=== PATIENT | male | born 1955 | race Caucasian/White ===

== ENCOUNTER 2021-02-26 12:34 | Emergency (ER) | payer MEDICARE, OTHER, SELFPAY ==
[2021-02-26 12:36] VITALS: BP 160/96; PULSE 81; RESP 20; TEMP 35.9; O2SAT 96; BMI 40.8
[2021-02-26 12:52] VITALS: O2SAT 97
--- NOTE | 2021-02-26 12:52 | EDS_ITS ---
HPI History of Present Illness Chief Complaint: Cough Informant: patient Onset/Context/Timing Onset: Days (4 days) Context: Gradual Onset Current Severity: Mild Maximum Severity: Moderate Narrative Narrative: Patient presents due to concern for Covid. He and his both became ill 3 days ago. On that day he reports fever and chills along with myalgias and cough. Those symptoms have been improving. His was admitted to the hospital 2 days ago with Covid. PFSH PFS Medical History (Updated 02/26/21 @ 15:[address] Diana Cotto MD) Arthritis HTN (hypertension) Home Medications dexamethasone [Decadron] 6 mg PO DAILY #10 tab 02/26/21 [Rx Last Taken Unknown] meloxicam 15 mg PO DAILY 02/26/21 [History Last Taken Unknown] Allergy/AdvReac Type Severity Reaction Status Date / Time No Known Allergies Allergy Verified 02/26/21 12:35 Surgical History (Updated 02/26/21 @ 12:53 by Mariam Sullivan) History of arthroplasty of right shoulder History of bilateral knee replacement History of right hip replacement Social History Smoking Status: Never smoker ROS ROS ED Constitutional Constitutional ED: Reports chills and fever(s) Eyes Eyes: Denies change in vision ENT ENT ED: Reports other Details: Congestion ; Denies sore throat Cardiovascular Cardiovascular: Denies chest pain Respiratory/Chest Respiratory/Chest: Reports cough and dyspnea Gastrointestinal Gastrointestinal: Reports diarrhea and nausea; Denies abdominal pain or vomiting Genitourinary Genitourinary ED: Denies dysuria Musculoskeletal Musculoskeletal: Reports myalgias; Denies back pain Integumentary Denies rash Neurologic Neurologic: Denies headache(s) or weakness Allergic/Immunologic Allergic/Immunologic ED: Denies urticaria EXAM Physical Exam Const Vital Signs: 02/26/21 12:36 02/26/21 12:52 02/26/21 13:22 Temperature 96.7 F L 99.3 F H Temperature Source Temporal Oral Pulse Rate 81 70 Respiratory Rate 20 H 20 H Respiratory Effort Normal Non-Labored Respiratory Depth Normal Respiratory Pattern Normal Blood Pressure 160/96 H 123/72 H Blood Pressure Mean 117 89 Pulse Ox 96 94 Oxygen Delivery Method Room Air Room Air Room Air 02/26/21 14:29 Temperature 97.7 F L Temperature Source Temporal Pulse Rate 79 Respiratory Rate 12 Respiratory Effort Respiratory Depth Respiratory Pattern Blood Pressure 133/72 H Blood Pressure Mean 92 Pulse Ox 97 Oxygen Delivery Method Room Air Positive well nourished and well developed General Appearance ED: well developed HEENT Reports normocephalic and head/scalp atraumatic Eyes PERRL and EOMs intact bilaterally Neck supple Chest Wall inspection of chest normal and palpation of chest normal Resp normal respiratory effort and clear to auscultation bilaterally Cardio regular rate and regular rhythm GI normal to inspection, nondistended, normoactive bowel sounds and non-tender Palpation: soft Extremity normal to inspection Neuro oriented x3 and no sensory deficits noted Sensorium / Orientation: alert Motor Exam: strength 5/5 throughout Psych mental status grossly normal Skin no rashes or lesions noted MDM MDM MDM Narrative Medical decision making narrative: Chest x-ray, labs obtained. Lab Data Attestation: I reviewed the patient's lab results. Labs: Laboratory Results - last 24 hr 02/26/21 02/26/21 02/26/21 13:00 13:00 13:00 WBC 4.3 L RBC 5.28 Hgb 14.6 Hct 44.2 MCV 83.7 MCH 27.7 MCHC 33.0 RDW Std Deviation 41.3 RDW Coeff of Pretty 13.4 Plt Count 127 L MPV 11.3 Immature Gran % (Auto) 0.200 Neut % (Auto) 70.5 H Lymph % (Auto) 19.1 [place] % (Auto) 9.2 Eos % (Auto) 0.5 Baso % (Auto) 0.5 Absolute Neuts (auto) 3.0 Absolute Lymphs (auto) 0.81 L Nucleated RBC % 0 D-Dimer Quant (PE/DVT) 0.76 H* Sodium 138 Potassium 3.7 Chloride 107 Carbon Dioxide 26.0 Anion Gap 5 BUN 23 H Creatinine 0.73 Estim Creat Clear Calc 75.03 Est GFR (MDRD) Af Amer 137 Est GFR (MDRD) Non-Af 114 BUN/Creatinine Ratio 31.4 H Glucose 95 Lactic Acid Calcium 8.6 Total Bilirubin 0.50 AST 28 ALT 37 Alkaline Phosphatase 99 Total Protein 7.5 Albumin 3.4 Globulin 4.1 Albumin/Globulin Ratio 0.8 L 02/26/21 13:00 WBC RBC Hgb Hct MCV MCH MCHC RDW Std Deviation RDW Coeff of Pretty Plt Count MPV Immature Gran % (Auto) Neut % (Auto) Lymph % (Auto) [place] % (Auto) Eos % (Auto) Baso % (Auto) Absolute Neuts (auto) Absolute Lymphs (auto) Nucleated RBC % D-Dimer Quant (PE/DVT) Sodium Potassium Chloride Carbon Dioxide Anion Gap BUN Creatinine Estim Creat Clear Calc Est GFR (MDRD) Af Amer Est GFR (MDRD) Non-Af BUN/Creatinine Ratio Glucose Lactic Acid 0.9 Calcium Total Bilirubin AST ALT Alkaline Phosphatase Total Protein Albumin Globulin Albumin/Globulin Ratio Radiography Chest X-Ray - ED: 1 View, Read by ED Physician and Chronic Changes Diagnostic Testing: Radiology Impression Chest X-Ray 02/26/21 12:52 IMPRESSION: No acute pulmonary process Electronically Signed: Burton Johnston MD at 13:24 EDT , Service support , Chest CTA 02/26/21 13:42 IMPRESSION: No demonstrated PE, or thoracic aortic aneurysm or dissection Patchy interstitial and airspace opacifications in both lung li without effusions. This is most consistent with Covid pneumonia. Chronic bronchitis Degenerative bony changes Hiatal hernia Electronically Signed: Burton Johnston MD at 14:35 EDT , Service support , Treatment and Re-Evaluation Comments:: Chest x-ray per my interpretation reveals chronic changes. Lab work is reviewed. Covid swab is positive. D-dimer is elevated the patient is sent for a CTA. This does reveal mild bilateral infiltrates but no evidence of PE. Test results discussed with the patient. His O2 sat dropped to 92% with ambulation but is between 95 to 100% when lying at rest. He does not qualify for hospitalization at this time. He is interested in potentially receiving monoclonal antibodies and will be referred for this. He will also be treated with a course of Decadron. Return instructions are provided. Discharge Plan Triage Chief Complaint: Cough ED Provider: Diana Cotto Dx/Rx/DC Orders Clinical Impression: COVID-19 Instructions: Coronavirus Disease 2019 (COVID-19): Overview, Coronavirus Disease 2019 (COVID-19): Caring for Yourself or Others Prescriptions: New dexamethasone [Decadron] 6 mg tablet 6 mg PO DAILY Qty: 10 RF: 0 No Action meloxicam 15 mg Tablet 15 mg PO DAILY RF: 0 Other Ambulatory Orders: COVID Outpatient Monoclonal Antibody Referral (Routine) Location: None Selected Ordered By: Dr. Diana Cotto Primary Care Provider: Alejandra Alexandra Referrals: Alejandra Alexandra DO [Primary Care Provider] - 1-2 Weeks Disposition Disposition: Home, Self Care
--- NOTE | 2021-02-26 12:52 | RAD_ITS ---
STUDY: X-RAY CHEST REASON FOR EXAM: Male, 65 years old. Fever and cough TECHNIQUE: 2 AP portable views COMPARISON: None. FINDINGS: EKG leads overlie the chest The lungs are clear and expanded. There is no demonstrated pleural abnormality. Normal size heart. Normal mediastinum and elza. Normal visualized pulmonary arteries. Normal visualized aortic arch and descending thoracic aorta. There are diffuse degenerative changes of the visualized thoracic spine. Replaced right glenohumeral joint free of complication There is no demonstrated abnormality of the visualized soft tissue structures of the upper abdomen. RAD/Chest 1 View (Portable) IMPRESSION: No acute pulmonary process Electronically Signed: Burton Johnston MD at 13:24 EDT , Service support ,
[2021-02-26 13:17] LABS: Absolute Lymphocyte Count 0.81 X10^3/uL (0.83-4.51); Basophil# 0.02 X10^3/uL; Basophil% 0.5 % (0-1); Eosinophil# 0.02 X10^3/uL; Eosinophils% 0.5 % (0-5); Hematocrit 44.2 % (40-54); Hemoglobin 14.6 g/dL (13.0-16.5); Lymphocyte # 0.81 X10^3/ul (0.83-4.51); Lymphocyte % 19.1 % (19-41); Mean Corpuscular Hgb 27.7 pg (27.0-32.0); Mean Corpuscular Volume 83.7 fL (80-94); Mean Platelet Vol. 11.3 fl (6.2-12.0); Monocyte# 0.39 X10^3/uL; Monocyte% 9.2 % (0-10); NRBC Flagged by Analyzer 0 % (0-5); Neutrophil % 70.5 % (47-70); Platelet Count 127 K/mm3 (150-450); RBC Distribution Width CV 13.4 % (11.6-14.6); RBC Distribution Width SD 41.3 fl (35.1-43.9); Red Blood Count 5.28 M/mm3 (4.6-6.2); White Blood Count 4.3 K/mm3 (4.4-11.0)
[2021-02-26 13:22] VITALS: BP 123/72; PULSE 70; RESP 20; TEMP 37.4; O2SAT 94
[2021-02-26 13:30] LABS: D-Dimer Quantitative (DVT/PE) 0.76 FEU/ug/m (0.27-0.49)
[2021-02-26 13:36] LABS: ALB/GLOB Ratio 0.8 RATIO (0.9-2.4); AST(SGOT) 28 U/L (15-37); Alanine Aminotransfer ALT/SGPT 37 U/L (16-61); Albumin, Serum 3.4 g/dL (3.2-5.0); Alkaline Phosphatase 99 U/L (45-117); Anion Gap 5 (5-15); BUN 23 mg/dL (7-18); BUN/Creat Ratio 31.4 RATIO (10-20); Calcium,Total 8.6 mg/dL (8.5-10.1); Chloride 107 mmol/L (98-107); Creatinine, Serum 0.73 mg/dL (0.70-1.30); EST Glomerular Filtration Rate 114 mL/min (>60); Est Glom Filt Rate - Afr Amer 137 mL/min (>60); Estimated Creatinine Clearance 75.03 ml/min; Globulin 4.1 g/dL (2.2-4.2); Glucose 95 mg/dL (74-106); Potassium 3.7 mmol/L (3.5-5.1); Protein, Total 7.5 g/dL (6.4-8.2); Sodium Level 138 mmol/L (136-145)
[2021-02-26 13:38] LABS: Lactic Acid 0.9 mmol/L (0.4-1.9)
--- NOTE | 2021-02-26 13:42 | CT_ITS ---
STUDY: CTA CHEST REASON FOR EXAM: Male, 65 years old. SOB -- +Covid, + d-dimer RADIATION DOSAGE (If Supplied By Facility): CTDIvol = ( 12.66 ) mGy, DLP = ( 566.66 ) mGycm TECHNIQUE: The examination was performed with the intravenous administration of IV 100mL [id number]. Post-processing of the angiographic images was performed, with multiplanar reformation and 3D reconstruction. Individualized dose optimization techniques were used for this CT. COMPARISON: None. FINDINGS: Normal enhancement of the main pulmonary artery and right and left pulmonary arteries. Normal enhancement of the bilateral peripheral pulmonary arteries. There is no demonstrated pulmonary embolism. Normal thoracic aorta and visualized great vessels. There is no demonstrated aortic dissection. Normal heart and pericardium. Normal mediastinum. Normal hilar regions. There is peribronchial thickening. The lungs are well expanded. Subtle patchy interstitial and airspace opacifications in both lung li without effusions. This pattern of opacification is suspicious for Covid pneumonia. Normal pleura. Normal chest wall structures. There are degenerative changes of thoracic spine. There is a retrocardiac hiatal hernia CT/CTA Chest W/WO Contrast IMPRESSION: No demonstrated PE, or thoracic aortic aneurysm or dissection Patchy interstitial and airspace opacifications in both lung li without effusions. This is most consistent with Covid pneumonia. Chronic bronchitis Degenerative bony changes Hiatal hernia Electronically Signed: Burton Johnston MD at 14:35 EDT , Service support ,
[2021-02-26 14:29] VITALS: BP 133/72; PULSE 79; RESP 12; TEMP 36.5; O2SAT 97
[2021-02-26 15:30] VITALS: BP 140/83; PULSE 70; RESP 18; O2SAT 98
[2021-02-26] MEDS: dexAMETHasone 4 MG Tablet 6 MG PO (15:30)
== END 2021-02-26 15:40 | disposition home or self-care (01) ==
PROVIDERS: Emergency Provider Emergency Medicine; PCP Internal Medicine
DX: U07.1 COVID-19 (principal); Z79.899 Other long term (current) drug therapy
CPT/HCPCS: 36415; 71045; 71275; 80053; 83605; 85025; 85379; 87040; 87426; 99285; Q9967; A4216

== ENCOUNTER 2021-02-27 15:13 | Outpatient (CLI) | payer MEDICARE, SELFPAY ==
[2021-02-27] MEDS: 0.9% Saline Lock 10 ML Syringe IV (15:32)
[2021-02-27 15:35] VITALS: BP 131/73; PULSE 79; RESP 20; TEMP 36.8; O2SAT 98; BMI 40.1
[2021-02-27 16:05] VITALS: BP 131/67; PULSE 66; RESP 18; TEMP 36.9; O2SAT 97
[2021-02-27 16:51] VITALS: BP 130/69; PULSE 69; RESP 18; TEMP 36.6; O2SAT 96
== END 2021-02-27 17:05 | disposition home or self-care (01) ==
LOC: ICUOUT 15:14 → MS2 15:15
PROVIDERS: PCP Internal Medicine; Referring Provider Nurse Practitioner Acute Care; Visit Provider Nurse Practitioner Acute Care
DX: Z23 Encounter for immunization (principal); U07.1 COVID-19
CPT/HCPCS: J7050; M0243; A4216; Q0244